=== PATIENT | male | born 1955 | race Hispanic/Latino ===

== ENCOUNTER 2024-12-21 08:05 | Emergency (ER) | payer BC, MEDICARE ==
[~2024-12-21] VITALS: Ht 170.2 cm; Wt 90.7 kg
[~2024-12-21 08:05] MED LIST: LANTUS 3ML100 UNITS/
[2024-12-21 08:28] VITALS: PULSE 78; RESP 18; TEMP 98.6
[2024-12-21] MEDS: DIAZEPAM INJ 5 MG/ML 2 ML IV ONE (10:26)
[2024-12-21] MEDS: FENTANYL CITRATE/PF 100MCG/2 ML INJ IV ONE (10:27)
[2024-12-21 10:52] VITALS: BP 127/84; PULSE 74; RESP 18; TEMP 98.6; O2SAT 98
== END 2024-12-21 10:35 | disposition home or self-care (01) ==
LOC: ER 08:22
DX: M24.411 Recurrent dislocation, right shoulder (principal); X58.XXXA Exposure to other specified factors, initial encounter; I10 Essential (primary) hypertension; E11.9 Type 2 diabetes mellitus without complications; E78.5 Hyperlipidemia, unspecified
CPT/HCPCS: 23655; 73020; 73030; 99284; J3010; J3360